=== PATIENT | male | born 1990 | race Caucasian/White ===

== ENCOUNTER 2017-07-26 17:58 | Emergency (ER) | payer OTHER ==
[~2017-07-26] VITALS: Ht 188 cm; Wt 132.0 kg
[2017-07-26 18:57] LABS: ABSOLUTE BASOPHIL COUNT 0.1 /CUMM (0.0-0.2); ABSOLUTE EOSINOPHIL COUNT 0.2 /CUMM (0.0-0.7); ABSOLUTE GRANULOCYTE CT 7.1 /CUMM (1.4-6.5); ABSOLUTE LYMPH COUNT 3.3 /CUMM (1.2-3.4); ABSOLUTE MONOCYTE COUNT 0.8 /CUMM (0.10-0.60); BASOPHIL % 0.5 % (0.0-2.0); EOSINOPHIL % 1.8 % (0-5); GRANULOCYTE % 61.9 % (42.2-75.2); HEMATOCRIT 46.2 % (42-52); MEAN CORPUSCULAR HGB 29.4 PG (27.0-31.0); MEAN CORPUSCULAR HGB CONC 34.1 G/DL (33.0-37.0); MEAN PLATELET VOLUME 7.7 FL (7.4-10.4); PLATELET COUNT 321 /CUMM (130-400); RBC DISTRIBUTION WIDTH 12.3 % (11.5-14.5); RED BLOOD CELL CT 5.37 /CUMM (4.70-6.10); WHITE BLOOD CELL COUNT 11.4 /CUMM (4.8-10.8)
--- NOTE | 2017-07-26 21:50 | ED GENERAL ADULT ---
History of Present Illness General Chief Complaint: General Adult Stated Complaint: SIB WALK-IN FOR EKG AND BLOOD WORK Source: patient Exam Limitations: no limitations Vital Signs & Intake/Output Vital Signs & Intake/Output Vital Signs Date Time Temp Pulse Resp B/P B/P Pulse O2 O2 Flow FiO2 Mean Ox Delivery Rate 07/26 2127 98.7 103 18 147/87 100 Room Air 07/26 1802 98.4 106 18 146/96 98 Room Air Allergies Uncoded Allergies: Food Allergies APPLE JUICE/WATERMELON Med Allergies NKDA Triage Note: 26 YO MALE TO TRIAGE SENT FROM WALK IN FOR CHEST PAIN. PT STATES HE STARTED WITH CHEST PAIN IN THE L SIDE OF HIS CHEST A COUPLE OF DAYS AGO. C/O SLIGHT SOB X3 DAYS. DENIES ABD PAIN,NVD. Triage Nurses Notes Reviewed? yes Onset: Gradual Duration: week(s): (1), changing over time, gone now Timing: single episode today Injury Environment: home Severity: mild, moderate Severity Numbers: 4 No Modifying Factors: none Associated Symptoms: palpitations HPI: 26-year-old male with no significant past medical history presents for evaluation of palpitations. Patient states that he first noticed the palpitations about one week ago and they have been intermittent. He states that he feels his heart beating harder and faster than usual. Symptoms will last for several minutes before going away completely only to return again several hours later. Patient states he is unsure exactly what brings symptoms on. He states that he notices symptoms mostly while he is at rest. He reports mild associated shortness of breath but no chest pain nausea, vomiting, sweats, chills, hemoptysis, lower extremity edema, back pain or any other associated symptoms. Currently he is asymptomatic and feeling well. He's been asymptomatic since he' s been in the emergency department. He states that earlier today he went to an urgent care that sent him to the emergency department for an EKG and blood work. He does report some difficult family history of cardiac disease. He states that his mom is atrial fibrillation and that several of his uncles have in their 50s of heart disease. He does not drink smoke or use any drugs. No recent surgery or trauma no exogenous hormones. No history of DVT/PE. (Brady Guillaume) Past History Travel History Traveled to [place] past 21 day No Medical History Any Pertinent Medical History? see below for history Neurological: NONE EENT: NONE Cardiovascular: NONE Respiratory: NONE Gastrointestinal: NONE Hepatic: NONE Renal: NONE Musculoskeletal: NONE Psychiatric: NONE Endocrine: NONE Blood Disorders: NONE Cancer(s): NONE GENERAL ASSISTANT/Reproductive: NONE Surgical History Surgical History: non-contributory Psychosocial History What is your primary language Kiswahili Tobacco Use: Never used Family History Hx Contributory? No (Brady Guillaume) Review of Systems Review of Systems Constitutional: Reports: no symptoms. EENTM: Reports: no symptoms. Respiratory: Reports: see HPI, short of breath. Cardiovascular: Reports: see HPI, palpitations. GI: Reports: no symptoms. Genitourinary: Reports: no symptoms. Musculoskeletal: Reports: no symptoms. Skin: Reports: no symptoms. Neurological/Psychological: Reports: no symptoms. Hematologic/Endocrine: Reports: no symptoms. Immunologic/Allergic: Reports: no symptoms. All Other Systems: Reviewed and Negative (Brady Guillaume) Physical Exam Physical Exam General Appearance: well developed/nourished, no apparent distress, alert, awake , comfortable, obese Head: atraumatic, normal appearance Eyes: Bilateral: normal appearance, PERRL, EOMI. Ears, Nose, Throat: normal pharynx, normal ENT inspection, hearing grossly normal Neck: normal inspection, supple, full range of motion, no jvd Respiratory: normal breath sounds, chest non-tender, no respiratory distress, lungs clear Cardiovascular: regular rate/rhythm (rate 88 bpm on exam), normal peripheral pulses Peripheral Pulses: 2+ radial (R), 2+ radial (L) Gastrointestinal: normal bowel sounds, soft, non-tender, no organomegaly Back: normal inspection, normal range of motion, no vertebral tenderness Extremities: normal inspection, normal range of motion, no edema Neurologic/Psych: no motor/sensory deficits, awake, alert, oriented x 3, normal gait Skin: intact, normal color, warm/dry Lymphatic: no anterior cervical figueroa Core Measures ACS in differential dx? No CVA/TIA Diagnosis: No Sepsis Present: No Sepsis Focused Exam Completed? No (Brady Guillaume) Progress Differential Diagnoses I considered the following diagnoses in my evaluation of the patient: [ Dysrhythmia, electrolyte abnormalities, atrial fibrillation, acute coronary syndrome, PE, hyperthyroidism, hypothyroidism, anxiety] Plan of Care: Orders Procedure Date/time Status TROPONIN LEVEL 07/26 2207 Complete EKG 01/17 2208 Active Add-on Test (ER Only) 07/26 2147 Active TSH REFLEX 07/26 1815 Complete MAGNESIUM 07/26 1815 Complete TROPONIN LEVEL 07/26 1804 Complete COMPREHENSIVE METABOLIC PANEL 07/26 1804 Complete CBC WITHOUT DIFFERENTIAL 07/26 1804 Complete EKG 07/26 1804 Active Laboratory Tests 07/26/17 2238: Troponin I < 0.01 07/26/17 2208: Methadone Screen Cancelled, Barbiturate Screen Cancelled, Ur Phencyclidine Scrn Cancelled, Amphetamines Screen Cancelled, U Benzodiazepines Scrn Cancelled, Urine Cocaine Screen Cancelled, Urine Cannabis Screen Cancelled 07/26/171815: Anion Gap 17 H, Estimated GFR > 60, BUN/Creatinine Ratio 20.0, Glucose 93, Calcium 9.6, Magnesium 2.1, Total Bilirubin 0.5, AST 29, ALT 52, Alkaline Phosphatase 77, Troponin I < 0.01, Total Protein 7.9, Albumin 4.8, Globulin 3.1, Albumin/Globulin Ratio 1.5, TSH &T3 &Free T4 Intrp 1.820, CBC w Diff NO MAN DIFF REQ, RBC 5.37, MCV 86.0, MCH 29.4, RDW 12.3, MPV 7.7, Gran % 61.9, Lymphocytes % 29.1, Monocytes % 6.7, Eosinophils % 1.8, Basophils % 0.5, Absolute Granulocytes 7.1 H, Absolute Lymphocytes 3.3, Absolute Monocytes 0.8 H, Absolute Eosinophils 0.2, Absolute Basophils 0.1, PUBS MCHC 34.1 Patient seen and evaluated. He has no chest pain. He reports intermittent palpitations over the past week. He feels like his heart is beating harder and faster than usual. He feels the pounding on the left side of his chest. There is associated shortness of breath but currently he is asymptomatic and feels well. He states that he has not had symptoms since this morning. No DVT risk factors. Patient is mildly tachycardic with rate of 106 upon arrival at triage. On exam his heart rate is 88 bpm. All blood work is within normal limits including troponin. Patient had a repeat EKG and troponin that showed no significant changes. Considered the possibility of pulmonary embolism however patient has no risk factors no chest pain or shortness of breath currently. Symptoms have been going on for over a week. Advised patient to avoid caffeine or other stimulants. He'll be referred to cardiology and a primary care doctor. Discussed return precautions in detail. Patient is nontoxic-appearing and agrees the plan. Case discussed with Dr. Carney she agrees. Initial ED EKG: normal sinus rhythm, borderline inferior t wave changes Repeat EKG: unchanged (Brady Guillaume) Departure Departure Disposition: HOME OR SELF CARE Condition: Stable Clinical Impression Primary Impression: Intermittent palpitations Referrals: Jagdish SAL,Nelson Busch MD,Aubrey Segovia Patient Has No Primary Care Dr (PCP/Family) Additional Instructions: Monitor symptoms return with worsening pain or any concerns. Follow-up with provided primary care doctor and saw straightener as soon as possible return with any concerns. Departure Forms: Customer Survey General Discharge Information (Brady Guillaume) PA/NUCLEAR MEDICINE CHIEF TECHNOLOGIST Co-Sign Statement Statement: ED Attending supervision documentation- [] I saw and evaluated the patient. I have also reviewed all the pertinent lab results and diagnostic results. I agree with the findings and the plan of care as documented in the PA's/NUCLEAR MEDICINE CHIEF TECHNOLOGIST's documentation. [X] I have reviewed the ED Record and agree with the PA's/NUCLEAR MEDICINE CHIEF TECHNOLOGIST's documentation. [] Additions or exceptions (if any) to the PAs/NUCLEAR MEDICINE CHIEF TECHNOLOGIST's note and plan are summarized below: [] (Rommel SAL,Nakia) Critical Care Note Critical Care Note Critical Care Time: non-applicable (Brady Guillaume)
[2017-07-26 23:28] VITALS: BP 136/83
== END 2017-07-26 23:33 ==
LOC: ERH 17:58
PROVIDERS: Emergency Medicine
DX: R00.2 Palpitations (principal); R07.9 Chest pain, unspecified
CPT/HCPCS: 80307; 93005; 93010